=== PATIENT | male | born 1990 | race Caucasian/White ===

== ENCOUNTER 2024-08-24 11:26 | Emergency (ER) | payer MEDICAID, SELFPAY ==
[2024-08-24 12:08] VITALS: BP 149/68; PULSE 64; RESP 18; TEMP 36.4; O2SAT 100; BMI 27.2
--- NOTE | 2024-08-24 13:25 | MHC.RECOVRN ---
Methadone dose verified: Per KAREN Weaver at [facility] , Reg received 150mg of Methadone on 08/23/2024 @ 6:17AM as well as 1 take-home evening dose of 50mg. Methadone verification delivered to pharmacy. MD barker.
--- NOTE | 2024-08-24 13:44 | ED_ITS ---
HPI - General Adult General Chief complaint: General Medical Stated complaint: methadone dose Time Seen by Provider: 08/24/24 13:23 Source: patient Mode of arrival: ambulatory Limitations: no limitations History of Present Illness ED Provider: CY HPI narrative: 33 yo male with PMH of opiate use disorder on methadone 150mg daily missed AM dose. He has no complaints otherwise medical or psych. He is here with his partner who had same issue MD complaint: methadone dose Onset (ago): day(s) (1) Relieving factors: none Exacerbating factors: none Associated symptoms: denies other symptoms Treatments prior to arrival: none Related Data Home Medications ?Medication ?Instructions ?Recorded ?Confirmed methadone 10 mg/mL oral 50 mg PO BEDTIME 08/24/24 08/24/24 concentrate (Methadone Intensol) methadone 10 mg/mL oral 150 mg PO DAILY 08/24/24 08/24/24 concentrate (Methadone Intensol) Allergies Allergy/AdvReac Type Severity Reaction Status Date / Time No Known Allergies Allergy Verified 08/24/24 12:11 Review of Systems Review of Systems: Constitutional : No Fever, No Chills, Cardiovascular : No Chest Pain, No SOB Respiratory : No Dyspnea Gastrointestinal : No abdominal pain Musculoskeletal : No Joint Swelling Skin : No rash, no skin laceration Neuro : No Weakness, No Numbness Psych : No SI/HI PMFSH Past Medical History Attestation statement: The following information was validated with the patient. Source: old records reviewed Medical History (Updated 08/24/24 @ 14:14 by Inez Garcia DO) Opiate use Social History Social History Advance Directives: No Advance Directives Information Provided: No Do you have a plan to hurt others: No Plan Physical Exam ED Vital Signs: Vital Signs - 24 hr 08/24/24 12:08 Temperature 97.6 F Pulse Rate 64 Respiratory Rate 18 Blood Pressure 149/68 H Pulse Oximetry 100 Oxygen Delivery Method Room Air BMI result Body Mass Index 27.2 Appearance: Alert. Oriented X3. No acute distress. Eyes: Pupils equal, round and reactive to light. ENT: Pharynx normal. Neck: Normal inspection. Neck supple. CVS: Normal heart rate and rhythm. Pulses normal. Respiratory: No respiratory distress. Breath sounds normal. Abdomen: Soft and nontender. Skin: Skin warm and dry. Normal skin color. Normal skin turgor. Extremities: No lower extremity edema. No calf ttp Neuro: Oriented X 3. No motor deficit. No sensory deficit. CN2-12 intact Medications Administered Generic Name Dose Route Start Last Admin Trade Name Mely PRN Reason Stop Dose Admin Methadone HCl 150 mg 08/24/24 13:45 08/24/24 14:04 Methadone Hcl 20 Mg/2 Ml Oral.Conc PO 150 mg DAILY YARED Administration Medical Decision Making Medical Decision Making MDM Narrative: 33 yo male no medical or psychiatric complaints at this time patient requesting her AM dose of methadone which we confirmed. Will dose and request she follow up with her clinic. Unable to provide home dose. Differential Diagnosis Differential Diagnoses: The differential diagnosis associated with the presentation includes methadone dosing needs Independent Historian Clinical information obtained from an independent historian. History obtained from or confirmed by: Spouse Discharge Plan Discharge Clinical Impression: Methadone use Patient Disposition: Home, Self-Care Instructions: Narcotic Use Disorder (ED) Additional Instructions: patient was given 150mg at [facility] on 08/24/24 return for any worsening symptoms or concerns. Prescriptions: No Action methadone [Methadone Intensol] 10 mg/mL Concentrate 150 mg PO DAILY methadone [Methadone Intensol] 10 mg/mL Concentrate 50 mg PO BEDTIME Interventions: ED Discharge Assessment Last Done: 08/24/24 14:11 Print Language: Bengali
--- NOTE | 2024-08-24 13:44 | HE.PHANOTE ---
Re: Methadone Last dose verified at [facility] for Methadone 150 mg in the AM and 1 take-home evening dose of 50 mg on 08/23/24@0617.
[2024-08-24] MEDS: methADONE HCl 20 MG/2 ML ORAL.CONC 150 MG PO (14:04)
[2024-08-24 14:11] VITALS: BP 149/68; PULSE 64; RESP 18; TEMP 36.4; O2SAT 100
== END 2024-08-24 14:12 | disposition home or self-care (01) ==
PROVIDERS: Emergency Provider Emergency Medicine; PCP Family Medicine
DX: F11.20 Opioid dependence, uncomplicated (principal)
CPT/HCPCS: 99282; 99283